=== PATIENT | male | born 1975 | race Caucasian/White ===

== ENCOUNTER 2022-05-04 09:42 | Outpatient (CLI) | payer OTHER, SELFPAY | END 2022-05-04 09:43 | disposition home or self-care (01) | LOC: NFLDREF 05-05 01:14 | PROVIDERS: PCP Physician Assistant Medical; Referring Provider Physician Assistant Medical; Visit Provider Physician Assistant Medical | DX: Z00.00 Encounter for general adult medical examination without abnormal findings (principal); N52.9 Male erectile dysfunction, unspecified; J45.909 Unspecified asthma, uncomplicated; J30.9 Allergic rhinitis, unspecified; R73.03 Prediabetes; J45.20 Mild intermittent asthma, uncomplicated; E78.5 Hyperlipidemia, unspecified; I10 Essential (primary) hypertension; E78.2 Mixed hyperlipidemia | CPT/HCPCS: 80053; 80061 ==

== ENCOUNTER 2022-05-30 07:50 | Outpatient (CLI) | payer OTHER, SELFPAY | END 2022-05-30 07:51 | disposition home or self-care (01) | LOC: OP CLINIC 07:52 | PROVIDERS: PCP Physician Assistant Medical; Visit Provider Surgery | DX: Z12.11 Encounter for screening for malignant neoplasm of colon (principal); K63.5 Polyp of colon | CPT/HCPCS: 45385; J2250; J3010 ==

== ENCOUNTER 2022-10-10 08:21 | Outpatient (CLI) | payer OTHER, SELFPAY ==
[2022-10-10 13:47] LABS: Hematocrit 47.3 % (37.0-53.0); Hemoglobin* 16.9 gm/dL (13.5-17.5); Mean Corpuscular HGB Conc 36 gm/dL (32-36); Mean Corpuscular Hemoglobin 30 pg (26-34); Mean Corpuscular Volume 83 fL (80-100); Platelet Count* 284 K/uL (140-440); Red Blood Count 5.69 m/uL (4.30-5.90)
[2022-10-10 13:57] LABS: Slide Review Reflex No
[2022-10-10 14:10] LABS: Total Protein Urine 6 mg/dL
[2022-10-10 14:17] LABS: Microalbumin Creatinine Ratio 10 mg/g (0-30); Microalbumin Urine 2 mg/dL
== END 2022-10-10 08:22 | disposition home or self-care (01) ==
PROVIDERS: PCP Physician Assistant Medical; Visit Provider Family Medicine
DX: Z00.00 Encounter for general adult medical examination without abnormal findings (principal); E11.9 Type 2 diabetes mellitus without complications; I10 Essential (primary) hypertension; E78.5 Hyperlipidemia, unspecified; R07.9 Chest pain, unspecified
CPT/HCPCS: 80053; 82043; 82570; 83880; 84156; 85027

== ENCOUNTER 2022-10-13 15:35 | Emergency (ER) | payer OTHER, SELFPAY ==
[2022-10-13] VITALS (22 sets, daily range): BP systolic 114–133; BP diastolic 76–96; PULSE 63–75; RESP 18; TEMP 36.3; O2SAT 94–98; BMI 34.7
--- NOTE | 2022-10-13 16:08 | ED_ITS ---
HPI - General Adult General Time Seen by Provider: 16:08 Date Seen: 10/13/22 Chief complaint: Arrhythmia/Palpitations Stated complaint: High blood sugar, irregular heartbeat Time Seen by Provider: 10/13/22 16:04 Source: patient, RN notes reviewed and old records reviewed Mode of arrival: ambulatory Limitations: no limitations History of Present Illness HPI narrative: 47-year-old male with diabetes, high blood pressure who presents with elevated blood sugars and palpitations. Review of prior records clinic records from October 09 and demonstrates that patient has a recent diagnosis of diabetes and was started on metformin and Ozempic 4 days ago, also was seen in clinic on October 10 for palpitations and chest pain and had EKG and labs at that time that were reassuring. Patient presents today concerned about high blood sugars. Patient's sugars do occasionally go in the 300s but generally have been higher than use meter will read. In addition to his metformin Ozempic he takes lisinopril-hydrochlorothiazide and atorvastatin. Complains of intermittent palpitations that will feel like fast beats that last for seconds, no associated chest pain or shortness of breath with this but does say he has felt fatigued. Denies nausea, vomiting, diarrhea, abdominal pain. Related Data Home Medications Medication Instructions Recorded Confirmed albuterol sulfate 2.5 mg/3 mL 2.5 mg inhalation Q4H PRN 10/10/21 10/10/22 (0.083 %) solution for nebulization dupilumab 100 mg/0.67 mL 150 mg subcut Q2W 10/10/21 10/10/22 subcutaneous syringe (Dupixent) ipratropium 0.5 mg-albuterol 3 mg 3 ml inhalation QID PRN 10/10/21 10/10/22 (2.5 mg base)/3 mL nebulization soln Previous Rx's Medication Instructions Recorded albuterol sulfate 90 mcg/actuation 2 puff inhalation Q4H PRN 05/04/22 aerosol inhaler (ProAir HFA) bronchospasm #8.5 grams atorvastatin 20 mg tablet See Rx Instructions .Route 05/04/22 .COMPLEX #90 tabs losartan 100 1 tab PO QDAY #90 tabs 05/04/22 mg-hydrochlorothiazide 12.5 mg tablet tadalafil 20 mg tablet (Cialis) 20 mg PO QDAY PRN sexual activity 05/04/22 #30 tabs blood-glucose meter,continuous #1 ea 10/09/22 (Dexcom G7 Motor Generator Set Operator) blood-glucose sensor (Dexcom G7 #1 ea 10/09/22 Sensor device) metformin 500 mg tablet,extended 500 mg PO QDAY #60 tabs 10/09/22 release 24 hr omeprazole 20 mg capsule,delayed 20 mg PO QDAY #30 caps 10/09/22 release semaglutide 0.25 mg or 0.5 mg (2 0.25 mg (0.368 mL) subcut QWEEK 4 10/09/22 mg/3 mL) subcutaneous pen injector weeks #1.472 mL (Ozempic) insulin detemir U-100 100 unit/mL 10 unit (0.1 mL) subcut QHS #15 mL 10/13/22 (3 mL) subcutaneous pen Allergies Allergy/AdvReac Type Severity Reaction Status Date / Time penicillin V Allergy Severe Hives Verified 10/10/22 07:56 HAYFEVER Allergy Unknown Unknown Uncoded 10/10/22 07:56 PFSH PFS Surgical History (Updated 01/18/22 @ 14:53 by Konstantin Thomson PA-C) History of esophageal stricture ?Z87.19 - Personal history of other diseases of the digestive system (ICD-10) History of medial meniscus repair of left knee ?Z98.890 - Other specified postprocedural states (ICD-10) History of endoscopic sinus surgery ?Z98.890 - Other specified postprocedural states (ICD-10) Family History (Updated 01/17/22 @ 10:57 by Kary Mayo ~ PSR) Maternal Grandmother Diabetes High blood pressure Mother High blood pressure Sister High blood pressure Social History (Updated 01/17/22 @ 10:58 by Kary Mayo ~ PSR) Narrative: Non smoker Does not use illicit drugs does not drink alcohol Smoking Status: Never smoker How often do you have a drink containing alcohol: monthly or less How often do you have six or more drinks on one occasion: Never AUDIT-C Alcohol total score: 1 Non-prescribed substance use: denies use Little interest or pleasure in doing things: several days Feeling down, depressed, or hopeless: several days Exam Narrative: Exam Narrative: General: Well-developed and well-nourished, no acute distress Head: Atraumatic and normocephalic Eyes: Pupils are equal reactive, extraocular motions intact, conjunctiva clear ENT: External nose and ears are normal, posterior pharynx without erythema or exudate Neck: No midline cervical tenderness, full spontaneous range of motion the neck, trachea midline, no adenopathy Heart: Regular rate and rhythm no murmurs or thrills Lungs: Clear to auscultation bilaterally without wheezes or crackles Abdomen: Soft, nontender, nondistended with active bowel sounds Musculoskeletal: No tenderness, deformity, or edema Neurologic: Awake, alert, and oriented x3, no gross focal neurologic deficits, cranial nerves intact as tested Psych: Mood and affect are appropriate Skin: No rashes Const: Vital Signs, click to edit/add: Vital Signs - 24 hr 10/13/22 15:47 10/13/22 16:13 10/13/22 16:15 Temperature 97.4 F L Pulse Rate 68 72 Pulse Rate [Right Pulse Oximeter] 75 Respiratory Rate 18 Blood Pressure Blood Pressure [Ri ght Upper Arm] 132/93 H Pulse Oximetry 98 95 94 Oxygen Delivery Me thod Room Air 10/13/22 16:30 10/13/22 16:31 10/13/22 16:45 Temperature Pulse Rate 69 71 70 Pulse Rate [Right Pulse Oximeter] Respiratory Rate Blood Pressure 128/90 H Blood Pressure [Ri ght Upper Arm] Pulse Oximetry 96 95 98 Oxygen Delivery Me thod 10/13/22 17:00 10/13/22 17:01 10/13/22 17:15 Temperature Pulse Rate 67 66 68 Pulse Rate [Right Pulse Oximeter] Respiratory Rate Blood Pressure 133/96 H Blood Pressure [Ri ght Upper Arm] Pulse Oximetry 97 96 96 Oxygen Delivery Me thod 10/13/22 17:30 10/13/22 17:31 10/13/22 17:32 Temperature Pulse Rate 67 67 68 Pulse Rate [Right Pulse Oximeter] Respiratory Rate Blood Pressure 128/93 H Blood Pressure [Ri ght Upper Arm] Pulse Oximetry 96 98 97 Oxygen Delivery Me thod 10/13/22 17:45 10/13/22 18:00 10/13/22 18:01 Temperature Pulse Rate 66 66 64 Pulse Rate [Right Pulse Oximeter] Respiratory Rate Blood Pressure 114/76 Blood Pressure [Ri ght Upper Arm] Pulse Oximetry 97 98 97 Oxygen Delivery Me thod 10/13/22 18:19 10/13/22 18:30 Temperature Pulse Rate 63 65 Pulse Rate [Right Pulse Oximeter] Respiratory Rate Blood Pressure Blood Pressure [Ri ght Upper Arm] Pulse Oximetry 97 98 Oxygen Delivery Fl thod Course Course Hospital Course: Patient seen and examined, prior records are reviewed (see HPI). Patient seen today with palpitations, no associated chest pain, does feel some shortness of breath fatigue but this likely is due to his ongoing hyperglycemia and not cardiac disease. He labs ordered to evaluate for electrolyte abnormalities, IV fluids are initiated, will evaluate for DKA as well. Reevaluation(s) Time of Reevaluation #1: 18:48 Reevaluation #1: Labs independently interpreted by me with reassuring CBC, no anemia or leukocytosis. Hyperglycemia with pseudo hyponatremia, reassuring creatinine, normal potassium, no metabolic acidosis to suggest DKA. Urinalysis with glucose and ketones but no evidence for infection. Long conversation with patient and spouse regarding plan, we discussed continued dietary interventions and activity modification with or without starting long-acting insulin short-term. They would like to start insulin today. We discussed that with weight loss and dietary interventions, as well as Ozempic and metformin, patient may not need to be on long-term insulin therapy but these medications can take several weeks to reach steady state for blood sugar control. Patient was started on Lantus 10 units at bedtime and close follow-up with primary care. He has a continues glucose monitor and so can watch for hypoglycemia although given high glucose levels, at this low level of Lantus hypoglycemia would be unlikely. Vital Signs Vital signs: Initial Vital Signs Temperature 97.4 F L 10/13/22 15:47 Temperature Source Temporal Artery Scan 10/13/22 15:47 Pulse Rate 75 10/13/22 15:47 Respiratory Rate 18 10/13/22 15:47 Blood Pressure 132/93 H 10/13/22 15:47 Blood Pressure Mean 106 H 10/13/22 15:47 Blood Pressure Position Sitting 10/13/22 15:47 Pulse Oximetry 98 10/13/22 15:47 Oxygen Delivery Method Room Air 10/13/22 15:47 Vital Signs Temperature 97.4 F L 10/13/22 15:47 Pulse Rate 75 10/13/22 15:47 Respiratory Rate 18 10/13/22 15:47 Blood Pressure 132/93 H 10/13/22 15:47 Pulse Oximetry 98 10/13/22 15:47 Oxygen Delivery Method Room Air 10/13/22 15:47 Temperature 97.4 F L 10/13/22 15:47 Pulse Rate 65 10/13/22 18:30 Respiratory Rate 18 10/13/22 15:47 Blood Pressure 114/76 10/13/22 18:01 Pulse Oximetry 98 10/13/22 18:30 Oxygen Delivery Method Room Air 10/13/22 15:47 Medical Decision Making Lab Data Labs: Lab Results 10/13/22 10/13/22 10/13/22 Range/Units 16:11 16:50 Unknown VBG pH 7.372 (7.32-7.43) VBG pCO2 46 (40-50) mmHG VBG pO2 38.7 (25-47) mmHG VBG HCO3 27 (21-28) mmol/L Sodium 129 L (135-149) mmol/L Potassium 4.4 (3.6-5.1) mmol/L Chloride 95 L (96-114) mmol/L Carbon Dioxide 27 (20-32) mmol/L Anion Gap 7 (7-15) mEq/L BUN 14 (5-24) mg/dL Creatinine 0.8 (0.5-1.5) mg/dL Estimated Creat Clear 112.92 Estimated GFR 109 ml/min Glucose 452 H* (60-115) mg/dL Calcium 9.0 (8.4-10.6) mg/dL Magnesium 1.5 (1.5-2.6) mg/dL Total Bilirubin 0.9 (0.1-1.5) mg/dL Direct Bilirubin 0.1 (0.0-0.5) mg/dL AST 46 H (12-35) U/L ALT 101 H (4-50) U/L Alkaline Phosphatase 84 (40-150) U/L Troponin I < 0.01 L (0.01-0.04) ng/mL NT-Pro-B Natriuret Pep < 20 pg/mL Total Protein 6.7 (6.0-8.3) g/dL Albumin 4.2 (3.3-5.0) g/dL TSH 2.580 (0.270-4.200) uIU/mL Urine Color Yellow (Yellow) Urine Appearance Clear (Clear) Urine pH 5.5 (5.0-8.5) Ur Specific [place] 1.015 (1.000-1.030) Urine Protein Negative (Negative) Urine Glucose (UA) 2+ A (Negative) Urine Ketones 1+ A (Negative) Urine Blood Negative (Negative) Urine Nitrite Negative (Negative) Urine Bilirubin Negative (Negative) Urine Urobilinogen 0.2 (0.2-1.0) Ur Leukocyte Esterase Negative (Negative) Urine RBC 0-2 (0-2) Urine WBC 0-2 (0-5) Ur Squamous Epith Cells None (None-Few) Urine Bacteria None (None) POC Glucose 486 H* (60-115) mg/dl ECG Data Attestation: I personally reviewed and interpreted this ECG as follows: Prior ECG tracings: available for review Interpretation: Performed at 3:56 p.m. independently interpreted by me demonstrates normal sinus rhythm rate 70, no acute ST elevations or depressions, normal intervals, normal axis, QTC 403, NV 206. Compared to prior of October 10, no acute changes. Discharge Plan Discharge Clinical Impression: Diabetes mellitus with hyperglycemia, without long-term current use of insulin Patient Disposition: Home, Self-Care Condition: Stable Instructions: Type 2 Diabetes in Adults: New Diagnosis (DC), How to Give an Insulin Injection (ED), Meal Planning with the Plate Method (DC), Meal Planning with Diabetes Exchanges (DC), Diabetic Hyperglycemia (ED) Additional Instructions: Follow-up with your primary care doctor in 1 week Activity Level: Activity as Tolerated Discharge Diet: Diabetic Prescriptions: New insulin detemir U-100 100 unit/mL (3 mL) insulin pen 10 unit subcut QHS Qty: 15 0RF No Action tadalafil [Cialis] 20 mg tablet 20 mg PO QDAY PRN (Reason: sexual activity) Qty: 30 1RF Rx Instructions: take 1 tablet 30 min to 36 hours prior to intercourse albuterol sulfate [ProAir HFA] 90 mcg/actuation HFA aerosol inhaler 2 puff inhalation Q4H PRN (Reason: bronchospasm) Qty: 8.5 3RF (DME) Dexcom G7 Motor Generator Set Operator Misc See Rx Instructions .ROUTE .MEDSUPPLY Qty: 1 0RF Rx Instructions: As directed (DME) Dexcom G7 Sensor Device See Rx Instructions .ROUTE .MEDSUPPLY Qty: 1 0RF Rx Instructions: As directed metformin 500 mg tablet extended release 24 hr 500 mg PO QDAY Qty: 60 0RF Rx Instructions: Take 1 tab daily x 1wk. Increase to 1 tab twice daily after the first week, if tolerating medication. Ozempic 0.25 mg or 0.5 mg (2 mg/3 mL) pen injector 0.25 mg subcut QWEEK 28 Days Qty: 1.472 0RF omeprazole 20 mg capsule,delayed release(DR/EC) 20 mg PO QDAY Qty: 30 1RF Dupixent Syringe 100 mg/0.67 mL syringe 150 mg subcut Q2W ipratropium-albuterol 0.5 mg-3 mg(2.5 mg base)/3 mL solution for nebulization 3 ml inhalation QID PRN albuterol sulfate 2.5 mg /3 mL (0.083 %) solution for nebulization 2.5 mg inhalation Q4H PRN atorvastatin 20 mg tablet See Rx Instructions .ROUTE .COMPLEX Qty: 90 3RF Dose Instruction: TAKE 1 TABLET BY MOUTH EVERY EVENING. Rx Instructions: TAKE 1 TABLET BY MOUTH EVERY EVENING. losartan-hydrochlorothiazide 100-12.5 mg tablet 1 tab PO QDAY Qty: 90 3RF Follow Up/Referrals: Konstantin Thomson PA-C [Primary Care Provider] - Stand Alone Forms: [employer] Info Instructions
[2022-10-13 16:12] LABS: Glucose, Point-of-Care* 486 mg/dl (60-115)
[2022-10-13] MEDS: 0.9 % SODIUM CHLORIDE 1000 ml 1,000 ML IV ×2 (17:00→18:20)
[2022-10-13 17:04] LABS: HCO3 VBG 27 mmol/L (21-28); PCO2 VBG 46 mmHG (40-50); PO2 VBG 38.7 mmHG (25-47); pH VBG 7.372 (7.32-7.43)
[2022-10-13 17:25] LABS: Albumin* 4.2 g/dL (3.3-5.0); Chloride* 95 mmol/L (96-114); Potassium* 4.4 mmol/L (3.6-5.1); Sodium* 129 mmol/L (135-149)
[2022-10-13 17:27] LABS: Creatinine* 0.8 mg/dL (0.5-1.5); Est. Creatinine Clearance* 112.92; Estimated Glomerular Filt Rate 109 ml/min
[2022-10-13 17:28] LABS: Alanine Aminotransferase* 101 U/L (4-50); Alkaline Phosphatase* 84 U/L (40-150); Anion Gap 7 mEq/L (7-15); Aspartate Amino Transferase* 46 U/L (12-35); Bilirubin Direct* 0.1 mg/dL (0.0-0.5); Bilirubin Total* 0.9 mg/dL (0.1-1.5); Blood Urea Nitrogen* 14 mg/dL (5-24); Carbon Dioxide* 27 mmol/L (20-32); Total Protein* 6.7 g/dL (6.0-8.3)
[2022-10-13 17:29] LABS: Magnesium* 1.5 mg/dL (1.5-2.6)
[2022-10-13 17:39] LABS: Glucose* 452 mg/dL (60-115); NT Pro B Type NatriureticPept* < 20 pg/mL; Troponin I* < 0.01 ng/mL (0.01-0.04)
[2022-10-13 18:18] LABS: Appearance Urine Clear (Clear); Bilirubin Urine Negative (Negative); Blood Urine Negative (Negative); Color Urine Yellow (Yellow); Glucose Urine 2+ (Negative); Ketones Urine 1+ (Negative); Leukocyte Esterase Urine Negative (Negative); Nitrite Urine Negative (Negative); Protein Urine Negative (Negative); Specific Gravity Urine 1.015 (1.000-1.030); Urobilinogen Urine 0.2 (0.2-1.0); pH Urine 5.5 (5.0-8.5)
[2022-10-13 18:28] LABS: RBC Urine 0-2 (0-2); WBC Urine 0-2 (0-5)
--- NOTE | 2022-10-16 18:53 | ED.NURSE ---
Pt called and states no rx was sent for needles for new insulin pen. Verbal rx given over phone to [facility] pharmacist for needles for Lantus insulin pen, no refills.
== END 2022-10-13 19:56 | disposition home or self-care (01) ==
PROVIDERS: Emergency Provider Family Medicine; PCP Physician Assistant Medical
DX: E11.65 Type 2 diabetes mellitus with hyperglycemia (principal)
CPT/HCPCS: 36415; 80048; 80076; 81001; 82803; 82947; 83735; 83880; 84443; 84484; 93005; 99284; 99285; J7030

== ENCOUNTER 2023-09-26 08:40 | Outpatient (CLI) | payer OTHER, SELFPAY | END 2023-09-26 08:41 | disposition home or self-care (01) | LOC: NFLDREF 09-30 07:05 | PROVIDERS: PCP Physician Assistant Medical; Referring Provider Physician Assistant Medical; Visit Provider Physician Assistant Medical | DX: E11.9 Type 2 diabetes mellitus without complications (principal); I10 Essential (primary) hypertension; E78.2 Mixed hyperlipidemia; J45.20 Mild intermittent asthma, uncomplicated; K21.00 Gastro-esophageal reflux disease with esophagitis, without bleeding | CPT/HCPCS: 80053; 80061; 82043; 82570 ==

== ENCOUNTER 2024-05-20 12:47 | Emergency (ER) | payer OTHER, SELFPAY ==
--- OUTSIDE RECORDS SUMMARY | 2024-05-20 12:50 | XMS_ITS | Referral Summary ---
Author Organization [facility] Address [address] [place] [id number] Care Team Providers Care Certified Registered Nurse Anesthetist Name Role Phone None, Md Primary Care Provider Unavailabl e Allergies Active Allergy Reactions Criticality Noted Date Comments Penicillins Hives High 12/10/2017 Medications amLODIPine (NORVASC) 5 mg oral tablet Take 5 mg by mouth once daily. Active cetirizine (ZYRTEC) 10 mg oral tablet Take 10 mg by mouth once daily. Active albuterol HFA (PROVENTIL;VENT ADELAIDA HFA) 90 mcg/actuation Inhl inhaler Inhale 1 puff every 4 (four) hours as needed. Active HYDROcodone-cindy taminophen (NORCO) 5-325 mg oral tablet Take 1-2 tablets by mouth every 4 (four) hours as needed for Pain. 30 tablet 12/11/2017 6:08 PM CDT 12/11/2017 Active Sodium Chloride 0.9 % Nasal [place] SprA Instill 3 puffs into each nostril three times a day. 1 Canister 3 12/11/2017 Active Active Problems Problem Noted Date Diagnosed Date Chronic pansinusitis 12/11/2017 Social History Tobacco Use Types Packs/Day Years Used Date Smoking Tobacco: Never Smokeless Tobacco: Never Alcohol Use Standard Drinks/Week Comments No 0 (1 standard drink = 0.6 oz pur e alcohol) Sex and Gender Information Value Date Recorded Sex Assigned at Not on file Legal Sex Male 11:35 AM CDT Gender Identity Not on file Sexual Orientation Not on file Last Filed Vital Signs Vital Sign Reading Time Taken Comments Blood Pressure 106/74 12/11/2017 7:35 PM CDT Pulse 65 12/11/2017 7:35 PM CDT Temperature 36.2 C (97.1 F) 12/11/2017 7:35 PM CDT Respiratory Rate 16 12/11/2017 7:35 PM CDT Oxygen Saturation 92% 12/11/2017 7:35 PM CDT Inhaled Oxygen Concentration - - Weight 102.5 kg (226 lb) 12/10/2017 3:46 PM CDT Height 175.3 cm (5' 9) 12/10/2017 3:46 PM CDT Body Mass Index 33.37 12/10/2017 3:46 PM CDT Plan of Treatment Not on file Medical Devices Implanted Type Area [employer] Members[employer] Device Identifier Shelf Expiration Date Model / Serial / Lot Implant Sinus Propel Mini - [id number] Implanted:Qty: 4 on 12/11/2017 by Ray Pickard [place] at [facility] [place] Supply N/A: [employer] 03/13/2019 [id number] / / [id number] Implant Sinus Propel - [id number] Implanted:Qty: 2 on 12/11/2017 by Ray Pickard MD at [facility] [place] Supply N/A: [employer] 05/09/2019 [id number] / / [id number] Care Teams Certified Registered Nurse Anesthetist Relationship Specialty Start Date End Date Md Stefano PCP - General 12/11/17
--- OUTSIDE RECORDS SUMMARY | 2024-05-20 12:50 | XMS_ITS | Clinical Summary ---
Author Organization [facility] Address [address] [place] [id number] Care Team Providers Care Buckle Strap Drum Operator Name Role Phone [facility] Primary Care Provider Allergies Active Allergy Reactions Criticality Noted Date Comments Penicillin G Rash Low 11/18/2012 Medications Cetirizine HCl (ZYRTEC PO) Active ALBUTEROL Active Active Problems Problem Noted Date Diagnosed Date Sprain of ankle 11/18/2012 Overview (11/20/2014): Problem list name updated by automated process. Provider to review Family History Medical History Relation Comments Asthma Maternal Grandfather Heart Disease Maternal Grandfather Allergies Maternal Grandmother Diabetes Maternal Grandmother Allergies Mother Asthma Mother Arthritis Paternal Grandmother Relation Status Comments Maternal Grandfather Maternal Grandmother Mother Paternal Grandmother Social History Tobacco Use Types Packs/Day Years Used Date Smoking Tobacco: Never Smokeless Tobacco: Never Alcohol Use Standard Drinks/Week Comments Yes 0 (1 standard drink = 0.6 oz pur e alcohol) occasional PHQ-2 Answer Date Recorded PHQ-2 Score 0 03/06/2018 Adolescent Education Answer Date Record ed Getting School Help Needed Not on file 12/02 Sex and Gender Information Value Date Recorded Sex Assigned at Not on file Legal Sex Male 4:30 AM SUTURE POLISHER Gender Identity Not on file Sexual Orientation Not on file Last Filed Vital Signs Vital Sign Reading Time Taken Comments Blood Pressure 126/88 04/01/2018 1:18 PM SUTURE POLISHER Pulse 69 04/01/2018 1:18 PM SUTURE POLISHER Temperature 36.3 C (97.3 F) 04/01/2018 1:18 PM SUTURE POLISHER Respiratory Rate 22 07/14/2015 12:55 PM CDT Oxygen Saturation 97% 04/01/2018 1:18 PM SUTURE POLISHER Inhaled Oxygen Concentration - - Weight 105.2 kg (232 lb) 04/01/2018 1:18 PM SUTURE POLISHER Height 176.5 cm (5' 9.5) 04/01/2018 1:18 PM SUTURE POLISHER Body Mass Index 33.77 04/01/2018 1:18 PM SUTURE POLISHER Plan of Treatment Not on file Care Teams Buckle Strap Drum Operator Relationship Specialty Start Date End Date [address] [address] PCP - General 12/13/16
--- OUTSIDE RECORDS SUMMARY | 2024-05-20 12:50 | XMS_ITS | Clinical Summary ---
Author Organization [facility] Address [address] [place] [id number] Care Team Providers Care Construction Teacher Name Role Phone None, Primary Care Provider Unavailabl e Allergies Active [...] 12/11/2017 Active Sodium Chloride 0.9 % Nasal [place] SprA Instill 3 puffs into each nostril three times a day. 1 Canister 3 12/11/2017 Active Active Problems Problem Noted Date Diagnosed Date Chronic pansinusitis 12/11/2017 Family History Medical History Relation Comments Diabetes Maternal Grandmother Relation Status Comments Maternal Grandmother Social History Tobacco Use Types Packs/Day [...] 12/10/2017 3:46 PM CDT Plan of Treatment Health Maintenance Due Date Last Done Comments Colonoscopy 1974 Hepatitis C Screening 1974 Lipid Screening 1974 Anxiety Screening (JUANPABLO-2) 1975 Depression Assessment (PHQ-2) 1975 Pneumococcal 50+ Years (1 of 2 - PCV) 1993 Pneumococcal Vaccine (1 of 2 - PCV) 1993 COVID-19 Vaccine (1 - season) 2023 Influenza Vaccine (#1) 2023 Yearly Review of HCD 2024 12/05/2017 Zoster Vaccine (1 of 2) 2024 Adult Tetanus Booster 12/02/2026 12/02/2016 RSV Vaccines (1 - 1-dose 75+ series) 2049 Medical Devices Implanted Type Area Software Product Specialist Device Identifier Shelf Expiration Date Model / Serial / Lot Implant Sinus Propel Mini - [id number] Implanted:Qty: 4 on 12/11/2017 by Ray Pickard MD at [facility] [place] Supply N/A: [employer] 03/13/2019 [id number] / / [id number] Implant Sinus Propel - [id number] Implanted:Qty: 2 on 12/11/2017 by Ray Pickard MD at [facility] [place] [facility] Supply N/A: [employer] 05/09/2019 [id number] / / [id number] Care Teams Construction Teacher Relationship Specialty Start Date End Date Stefano, PCP - General 12/11/17
[2024-05-20 13:28] VITALS: BP 134/94; PULSE 95; RESP 16; TEMP 36.5; O2SAT 95; BMI 34.4
--- NOTE | 2024-05-20 15:11 | CRLHL7_ITS ---
For Patients: As a result of the Century Cures Act, medical imaging exams and procedure reports are released immediately into your electronic medical record. You may view this report before your referring provider. If you have questions, please contact your health care provider. Indication: DIARRHEA. RECENT TRIP TO [place] Technique: CT abdomen and pelvis after the intravenous administration of 118 cc of Isovue 370 Comparison: None. Findings: Benign calcified granuloma is present left upper lobe there is mild atelectasis at the lung bases. Subcentimeter hypodensity within the liver dome is too small to characterize, statistically a cyst. The spleen is enlarged measuring 16 centimeters in length. The gallbladder, pancreas, adrenal glands, and kidneys are normal. Urinary bladder is minimally filled and inadequately evaluated. There are no pelvic cysts or masses. The appendix is not visualized, correlate for surgical absence. The hollow viscera is without obstruction, focal bowel wall thickening or adjacent inflammatory stranding. There is no free air, ascites or lymphadenopathy. The abdominal aorta and its major branches are patent and normal in caliber. Soft tissues are unremarkable. Right total hip arthroplasty is present. 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 IMPRESSION: 1. Splenomegaly. Correlate with patient history and appropriate labs. 2. No acute intra-abdominal findings. Please note that all CT scans at this facility use dose modulation, iterative reconstruction, and/or weight-based dosing when appropriate to reduce radiation dose to as low as reasonably achievable. Dictated by Rony Torres MD @ 05/20/2024 4:03:27 PM (Electronically Signed)
[2024-05-20 15:17] LABS: Creatinine, Point-of-Care* 1.2 mg/dl (0.6-1.3)
[2024-05-20] MEDS: LACTATED RINGERS 1000 ML 1,000 ML IV (15:21)
[2024-05-20 15:24] LABS: Basophils Percent Auto 0.3 % (0.0-3.0); Eosinophils Percent Auto 3.4 % (0.0-7.0); Hematocrit 49.4 % (37.0-53.0); Hemoglobin* 17.3 gm/dL (13.5-17.5); Lymphocytes Percent Auto 13.4 % (20-44); Mean Corpuscular HGB Conc 35 gm/dL (32-36); Mean Corpuscular Hemoglobin 29 pg (26-34); Mean Corpuscular Volume 83 fL (80-100); Monocytes Percent Auto 5.6 % (0.0-11.0); Neutrophils Percent Auto 75.3 % (42.0-72.0); Platelet Count* 285 K/uL (140-440); RDW Coefficient of Variation % 13.1 % (11.5-15.5); Red Blood Count 5.97 m/uL (4.30-5.90); White Blood Count* 11.32 K/uL (4.50-11.00)
--- OUTSIDE RECORDS SUMMARY | 2024-05-20 15:24 | XMS_ITS | Referral Summary ---
Author Organization [facility] Address [address] [place] [id number] Care Team Providers Care Research Worker Kitchen Name Role Phone None, Md Primary Care [...] 12/11/2017 Active Sodium Chloride 0.9 % Nasal [place] SprA Instill 3 puffs into each nostril [...] on file Medical Devices Implanted Type Area Electronic Organ Technician Device Identifier Shelf Expiration Date Model / Serial / Lot Implant Sinus Propel Mini - [id number] Implanted:Qty: 4 on 12/11/2017 by Ray Pickard MD [place] [facility] [place] Supply N/A: [employer] 03/13/2019 [id number] / / [id number] Implant Sinus Propel - [id number] Implanted:Qty: 2 on 12/11/2017 by Ray Pickard MD [place] [facility] [place] Supply N/A: [employer] 05/09/2019 [id number] / / [id number] Care Teams Research Worker Kitchen Relationship Specialty Start Date End Date Md Stefano PCP - General 12/11/17
--- OUTSIDE RECORDS SUMMARY | 2024-05-20 15:24 | XMS_ITS | Clinical Summary ---
Author Organization [facility] Address [address] [place] [id number] Care Team Providers Care Iso Coordinator Name Role Phone None, Primary Care Provider [...] 12/11/2017 Active Sodium Chloride 0.9 % Nasal [place] SprA Instill 3 puffs into each nostril [...] series) 2049 Medical Devices Implanted Type Area [employer] Worker Device Identifier Shelf Expiration Date Model / Serial / Lot Implant Sinus Propel Mini - [id number] Implanted:Qty: 4 on 12/11/2017 by Ray Pickard MD at [facility] [place] [facility] Supply N/A: [employer] 03/13/2019 [id number] / / [id number] Implant Sinus Propel - [id number] Implanted:Qty: 2 on 12/11/2017 by Ray Pickard MD at [facility] [place] [facility] Supply N/A: [employer] 05/09/2019 [id number] / / [id number] Care Teams Iso Coordinator Relationship Specialty Start Date End Date Stefano, PCP - General 12/11/17
--- OUTSIDE RECORDS SUMMARY | 2024-05-20 15:24 | XMS_ITS | Clinical Summary ---
Author Organization [facility] Address [address] [place] [id number] Care Team Providers Care Insurance Professional Name Role Phone [facility], [facility] Primary Care Provider Allergies Active Allergy Reactions [...] on file Legal Sex Male 4:30 AM ROLL UP MACHINE OPERATOR Gender Identity Not on file Sexual Orientation Not on file Last Filed Vital Signs Vital Sign Reading Time Taken Comments Blood Pressure 126/88 04/01/2018 1:18 PM ROLL UP MACHINE OPERATOR Pulse 69 04/01/2018 1:18 PM ROLL UP MACHINE OPERATOR Temperature 36.3 C (97.3 F) 04/01/2018 1:18 PM ROLL UP MACHINE OPERATOR Respiratory Rate 22 07/14/2015 12:55 PM CDT Oxygen Saturation 97% 04/01/2018 1:18 PM ROLL UP MACHINE OPERATOR Inhaled Oxygen Concentration - - Weight 105.2 kg (232 lb) 04/01/2018 1:18 PM ROLL UP MACHINE OPERATOR Height 176.5 cm (5' 9.5) 04/01/2018 1:18 PM ROLL UP MACHINE OPERATOR Body Mass Index 33.77 04/01/2018 1:18 PM ROLL UP MACHINE OPERATOR Plan of Treatment Not on file Care Teams Insurance Professional Relationship Specialty Start Date End Date [address] [address] PCP - General 12/13/16
--- NOTE | 2024-05-20 15:34 | ED.NAVMDI ---
HPI - Nausea/Vomiting/Diarrhea General Date Seen: 05/20/24 Chief complaint: Diarrhea Stated complaint: diarrhea-recent trip to [place] Time Seen by Provider: 05/20/24 14:33 Source: patient Mode of arrival: ambulatory Limitations: no limitations History of Present Illness HPI Narrative: Patient is a 49-year-old male presenting to the emergency department for 4 days of diarrhea. He states he was in [place] on vacation came back Sunday. Has been having the diarrhea consistently he states it also has been having intermittent nausea. Last vomited yesterday. Took Pepto-Bismol Sunday is having black stools Sunday into this morning but the stools he states are yellow. They are watery. Is unaware of any other sick contacts. No on else he went on vacation with her sick. Has not had any fevers or chills. Is having some mild epigastric discomfort. Pain does not seem to radiate anywhere. Denies chest pain, shortness of breath, lightheadedness, dizziness, weakness, numbness, dysuria polyuria. No previous abdominal surgeries. Has been having decrease in oral intake due to his decreased appetite. Has been trying to drink fluids. No other concerns noted. Related Data Home Medications ?Medication ?Instructions ?Recorded ?Confirmed albuterol sulfate 2.5 mg/3 mL 2.5 mg inhalation Q4H PRN 10/10/21 09/26/23 (0.083 %) solution for nebulization dupilumab 100 mg/0.67 mL 150 mg subcut Q2W 10/10/21 09/26/23 subcutaneous syringe (Dupixent) ipratropium 0.5 mg-albuterol 3 mg 3 ml inhalation QID PRN 10/10/21 09/26/23 (2.5 mg base)/3 mL nebulization soln Previous Rx's ?Medication ?Instructions ?Recorded albuterol sulfate 90 mcg/actuation 2 puff inhalation Q4H PRN 05/04/22 aerosol inhaler (ProAir HFA) bronchospasm #8.5 grams blood-glucose meter,continuous #1 ea 10/09/22 (Rotapanelcom G7 Emergency Management Consultant) tadalafil 20 mg tablet (Cialis) 20 mg PO QDAY PRN sexual activity 06/06/23 #30 tabs atorvastatin 20 mg tablet 20 mg PO QHS #90 tabs 09/26/23 losartan 100 1 tab PO QDAY #90 tabs 09/26/23 mg-hydrochlorothiazide 12.5 mg tablet omeprazole 20 mg capsule,delayed 20 mg PO DAILY #90 caps 09/26/23 release semaglutide 2 mg/dose (8 mg/3 mL) 2 mg (0.75 mL) subcut QWEEK 3 09/26/23 subcutaneous pen injector (Ozempic) months #9.75 mL tirzepatide 10 mg/0.5 mL 10 mg (0.5 mL) subcut QWEEK #2 mL 03/17/24 subcutaneous pen injector (Mounjaro) blood-glucose sensor (Dexcom G7 #3 ea 05/13/24 Sensor device) Allergies Allergy/AdvReac Type Severity Reaction Status Date / Time penicillin V Allergy Severe Hives Verified 05/20/24 15:45 HAYFEVER Allergy Unknown Unknown Uncoded 05/20/24 15:45 Review of Systems Status of ROS: Reports: 10 or more systems reviewed and unremarkable except as noted in History and below PFSH PFSH Medical History Chest pain ?R07.9 - Chest pain, unspecified (ICD-10) Surgical History History of esophageal stricture ?Z87.19 - Personal history of other diseases of the digestive system (ICD-10) History of medial meniscus repair of left knee ?Z98.890 - Other specified postprocedural states (ICD-10) History of endoscopic sinus surgery ?Z98.890 - Other specified postprocedural states (ICD-10) Family History Maternal Grandmother Diabetes High blood pressure Mother High blood pressure Sister High blood pressure Social History Narrative: Non smoker Does not use illicit drugs does not drink alcohol Smoking Status: Never smoker How often do you have a drink containing alcohol: monthly or less How often do you have six or more drinks on one occasion: Never AUDIT-C Alcohol total score: 1 Non-prescribed substance use: denies use Exam Narrative: Exam Narrative: Const: Well-nourished, Well-developed, in mild distress Eyes: PERRL, no conjunctival injection, and symmetrical lids HENT: Atraumatic external nose and ears. Moist mucous membranes. Neck: Symmetric, trachea midline, No thyromegaly. CVS: RRR, No murmurs or gallops. Peripheral pulses 2+ and equal in all extremities RESP: Unlabored respiratory effort. Clear to auscultation bilaterally. GI: Epigastric tenderness, Nondistended, No rebound or guarding. MSK:Extremities w/o deformity, Normal Active ROM Skin: Warm, Dry. No rashes or lesions. Neuro: Normal Muscle tone, No focal neurological deficits. Psych: Awake, Alert, & Oriented x3. Appropriate mood and affect. Const: Vital Signs, click to edit/add: Vital Signs - 24 hr 05/20/24 13:28 Temperature 97.7 F Pulse Rate [Pulse Oximeter] 95 Respiratory Rate 16 Blood Pressure [Ri ght Upper Arm] 134/94 H Pulse Oximetry 95 Oxygen Delivery Me thod Room Air Course Vital Signs Vital signs: Initial Vital Signs Temperature 97.7 F 05/20/24 13:28 Temperature Source Temporal Artery Scan 05/20/24 13:28 Pulse Rate 95 05/20/24 13:28 Respiratory Rate 16 05/20/24 13:28 Blood Pressure 134/94 H 05/20/24 13:28 Blood Pressure Mean 107 H 05/20/24 13:28 Pulse Oximetry 95 05/20/24 13:28 Oxygen Delivery Method Room Air 05/20/24 13:28 Vital Signs Temperature 97.7 F 05/20/24 13:28 Pulse Rate 95 05/20/24 13:28 Respiratory Rate 16 05/20/24 13:28 Blood Pressure 134/94 H 05/20/24 13:28 Pulse Oximetry 95 05/20/24 13:28 Oxygen Delivery Method Room Air 05/20/24 13:28 Temperature 97.7 F 05/20/24 13:28 Pulse Rate 95 05/20/24 13:28 Respiratory Rate 16 05/20/24 13:28 Blood Pressure 134/94 H 05/20/24 13:28 Pulse Oximetry 95 05/20/24 13:28 Oxygen Delivery Method Room Air 05/20/24 13:28 Medications Administered Medications: Discontinued Medications Generic Name Dose Route Start Last Admin Trade Name Freq PRN Reason Stop Dose Admin Lactated Ringer's 1,000 mls @ 1,000 mls/hr 05/20/24 14:46 05/20/24 16:02 Lactated Ringers 1000 Ml IV 05/20/24 15:45 Infused .Q1H ONE Infusion MDM - Nausea/Vomiting/Diarrhea MDM Narrative Medical decision making narrative: Patient is a 49-year-old male presenting to the emergency department for diarrhea. Is no longer vomiting. States his symptoms feel in control right now she is concerned because he continues to have diarrhea. Differential the same with his gastroenteritis, pancreatitis, gallbladder liver disease. Due to location of pain appendicitis and diverticulitis seems less likely. He is otherwise stable and ruptured AAA seems very unlikely. I believe his black stools from yesterday is likely from the Pepto-Bismol he was using. He stop Pepto-Bismol the black stools resolved. Unlikely to be an upper GI bleed at this time. Will order a CBC, CMP, lipase, COVID/flu/RSV. Will do CT scan of the abdomen pelvis for better evaluation and give him a L of fluids. Patient's lab work shows no concerning abnormalities other than he is COVID positive. This is likely the source of all of his symptoms. CT scan reviewed by myself and the radiologist shows no acute concerning abnormalities. He does have some mild splenomegaly. This may be from the COVID. I recommended to him the stays away from contact sports until this resolves. He is safe for discharge and he is agreeable to this plan. Lab Data Labs: Lab Results 05/20/24 Range/Units 15:10 WBC 11.32 H (4.50-11.00) K/uL RBC 5.97 H (4.30-5.90) m/uL Hgb 17.3 (13.5-17.5) gm/dL Hct 49.4 (37.0-53.0) % MCV 83 (80-100) fL MCH 29 (26-34) pg MCHC 35 (32-36) gm/dL RDW Coeff of Darlyn 13.1 (11.5-15.5) % Plt Count 285 (140-440) K/uL Neut % (Auto) 75.3 H (42.0-72.0) % Lymph % (Auto) 13.4 L (20-44) % Davie % (Auto) 5.6 (0.0-11.0) % Eos % (Auto) 3.4 (0.0-7.0) % Baso % (Auto) 0.3 (0.0-3.0) % Neut # (Auto) 8.50 H (1.7-7.0) K/uL Lymph # (Auto) 1.50 (0.90-2.90) K/uL [place]ie # (Auto) 0.60 (0.00-0.90) K/UL Eos # (Auto) 0.40 (0.00-0.50) K/uL Baso # (Auto) 0.00 (0.00-0.30) K/uL Abs Immat Gran (auto) 0.20 (0.00-0.30) K/uL Imm/Tot Granulo (auto) 2.0 % Sodium 138 (135-149) mmol/L Potassium 3.7 (3.6-5.1) mmol/L Chloride 108 (96-114) mmol/L Carbon Dioxide 16 L (20-32) mmol/L Anion Gap 14 (7-15) mEq/L BUN 16 (7-30) mg/dL Creatinine 1.1 (0.5-1.5) mg/dL Estimated Creat Clear 82.95 Estimated GFR 82 ml/min Glucose 109 (60-115) mg/dL Calcium 9.6 (8.4-10.6) mg/dL Lipase 43 (23-300) U/L SARS-CoV-2 (PCR) POSITIVE SARS-CoV-2 A (Negative) Influenza Type A (PCR) Negative PCR FLU A (Negative) Influenza Type B (PCR) Negative PCR FLU B (Negative) RSV (PCR) Negative PCR RSV (Negative) POC Creatinine 1.2 (0.6-1.3) mg/dl Imaging Data CT scan abdomen and pelvis: Attestation: I have reviewed the pertinent imaging results. Radiologist's impression: 1. Splenomegaly. Correlate with patient history and appropriate labs. 2. No acute intra-abdominal findings. Please note that all CT scans at this facility use dose modulation, iterative reconstruction, and/or weight-based dosing when appropriate to reduce radiation dose to as low as reasonably achievable. Dictated by Rony Torres MD @ 05/20/2024 4:03:27 PM Discharge Plan Discharge Clinical Impression: COVID Patient Disposition: Home, Self-Care Condition: Stable Instructions: COVID-19 (Coronavirus Disease 2019) (ED) Additional Instructions: Make sure to stay well hydrated. He do have some splenomegaly. This is likely from the COVID. Should resolve but recommend abstain from any contact to that area until it gets smaller as your at increased risk of splenic rupture. Current COVID social distancing guidelines is to go for 5 days from onset of symptoms and 72 hours without a fever. Prescriptions: No Action albuterol sulfate [ProAir HFA] 90 mcg/actuation HFA aerosol inhaler 2 puff inhalation Q4H PRN (Reason: bronchospasm) Qty: 8.5 3RF (DME) Dexcom G7 Emergency Management Consultant Misc See Rx Instructions .ROUTE .MEDSUPPLY Qty: 1 0RF Rx Instructions: As directed Dupixent Syringe 100 mg/0.67 mL syringe 150 mg subcut Q2W ipratropium-albuterol 0.5 mg-3 mg(2.5 mg base)/3 mL solution for nebulization 3 ml inhalation QID PRN albuterol sulfate 2.5 mg /3 mL (0.083 %) solution for nebulization 2.5 mg inhalation Q4H PRN tadalafil [Cialis] 20 mg tablet 20 mg PO QDAY PRN (Reason: sexual activity) Qty: 30 2RF Rx Instructions: take 1 tablet 30 min to 36 hours prior to intercourse atorvastatin 20 mg tablet 20 mg PO QHS Qty: 90 3RF losartan-hydrochlorothiazide 100-12.5 mg tablet 1 tab PO QDAY Qty: 90 3RF omeprazole 20 mg capsule,delayed release(DR/EC) 20 mg PO DAILY Qty: 90 3RF Ozempic 2 mg/dose (8 mg/3 mL) pen injector 2 mg subcut QWEEK 90 Days Qty: 9.75 1RF Mounjaro 10 mg/0.5 mL pen injector 10 mg subcut QWEEK Qty: 2 3RF (DME) Dexcom G7 Sensor Device See Rx Instructions .ROUTE .MEDSUPPLY Qty: 3 3RF Rx Instructions: As directed Follow Up/Referrals: Konstantin Thomson PA-C [Primary Care Provider] - Stand Alone Forms: [facility] Info Instructions
[2024-05-20 15:35] LABS: Slide Review Reflex No
[2024-05-20 15:38] LABS: Chloride* 108 mmol/L (96-114); Potassium* 3.7 mmol/L (3.6-5.1); Sodium* 138 mmol/L (135-149)
[2024-05-20 15:41] LABS: Anion Gap 14 mEq/L (7-15); Blood Urea Nitrogen* 16 mg/dL (7-30); Calcium* 9.6 mg/dL (8.4-10.6); Carbon Dioxide* 16 mmol/L (20-32); Creatinine* 1.1 mg/dL (0.5-1.5); Est. Creatinine Clearance* 82.95; Estimated Glomerular Filt Rate 82 ml/min; Glucose* 109 mg/dL (60-115); Lipase* 43 U/L (23-300)
[2024-05-20 16:03] LABS: PCR FLU A Negative PCR FLU A (Negative); PCR FLU B Negative PCR FLU B (Negative); PCR RSV Negative PCR RSV (Negative); SARS PCR* POSITIVE SARS-CoV-2 (Negative)
== END 2024-05-20 16:27 | disposition home or self-care (01) ==
PROVIDERS: Emergency Provider Student in an Organized Health Care Education/Training Program; PCP Physician Assistant Medical
DX: U07.1 COVID-19 (principal)
CPT/HCPCS: 36415; 74177; 80048; 82565; 83690; 85025; 87631; 99284; J7120; Q9967

== ENCOUNTER 2024-05-22 12:59 | Emergency (ER) | payer OTHER, SELFPAY ==
--- OUTSIDE RECORDS SUMMARY | 2024-05-22 13:02 | XMS_ITS | Clinical Summary ---
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 Gender Identity Not on file Sexual Orientation Not on file Last Filed Vital Signs Vital Sign Reading Time Taken Comments Blood Pressure 126/88 04/01/2018 1:18 PM DENTISTRY PROFESSOR Pulse 69 04/01/2018 1:18 PM DENTISTRY PROFESSOR Temperature 36.3 C (97.3 F) 04/01/2018 1:18 PM DENTISTRY PROFESSOR Respiratory Rate 22 07/14/2015 12:55 PM CDT Oxygen Saturation 97% 04/01/2018 1:18 PM DENTISTRY PROFESSOR Inhaled Oxygen Concentration - - Weight 105.2 kg (232 lb) 04/01/2018 1:18 PM DENTISTRY PROFESSOR Height 176.5 cm (5' 9.5) 04/01/2018 1:18 PM DENTISTRY PROFESSOR Body Mass Index 33.77 04/01/2018 1:18 PM DENTISTRY PROFESSOR Plan of Treatment Not on file Care Teams Assistant Relationship Specialty Start Date End Date [address] [address] PCP - General 12/13/16
--- OUTSIDE RECORDS SUMMARY | 2024-05-22 13:02 | XMS_ITS | Referral Summary ---
Author Organization [facility] Address [address] [place] [id number] Care Team Providers Care High School Biology Teacher Name Role Phone None, Md Primary Care [...] 12/11/2017 Active Sodium Chloride 0.9 % Nasal [place] SprA Instill 3 puffs into each nostril [...] on file Medical Devices Implanted Type Area Lamp Cleaner Device Identifier Shelf Expiration Date Model / Serial / Lot Implant Sinus Propel Mini - [id number] Implanted:Qty: 4 on 12/11/2017 by Ray [place]ard [place] [facility] N/A: [employer] 03/13/2019 [id number] / / [id number] Implant Sinus Propel - [id number] Implanted:Qty: 2 on 12/11/2017 by Ray Pickard [place] [facility] [place] [place] N/A: [employer] 05/09/2019 [id number] / / [id number] Care Teams High School Biology Teacher Relationship Specialty Start Date End Date Md Stefano PCP - General 12/11/17
--- OUTSIDE RECORDS SUMMARY | 2024-05-22 13:02 | XMS_ITS | Clinical Summary ---
Author Organization [facility] Address [address] [place] [id number] Care Team Providers Care Hearing Stenographer Name Role Phone None, Md Primary Care [...] 12/11/2017 Active Sodium Chloride 0.9 % Nasal [place] SprA Instill 3 puffs into each nostril [...] of 2 - PCV) 1993 COVID-19 Vaccine ( - season) 2023 Yearly Review of HCD 2024 12/05/2017 Zoster Vaccine (1 of 2) 2024 Influenza Vaccine (Season Ended) 2024 Adult Tetanus Booster 12/02/2026 12/02/2016 RSV Vaccines (1 - 1-dose 75+ series) 2049 Medical Devices Implanted Type Area Leader Assembler Device Identifier Shelf Expiration Date Model / Serial / Lot Implant Sinus Propel Mini - [id number] Implanted:Qty: 4 on 12/11/2017 by Ray Pickard MD at [facility] [place] N/A: [employer] 03/13/2019 [id number] / / [id number] Implant Sinus Propel - [id number] Implanted:Qty: 2 on 12/11/2017 by Ray Pickard MD [place] [facility] N/A: [employer] 05/09/2019 [id number] / / [id number] Care Teams Hearing Stenographer Relationship Specialty Start Date End Date Stefano, PCP - General 12/11/17
[2024-05-22 13:16] VITALS: BP 143/109; PULSE 82; RESP 18; TEMP 36.3; O2SAT 97; BMI 33.0
--- NOTE | 2024-05-22 13:21 | ED.NAVMDI ---
HPI - Nausea/Vomiting/Diarrhea General Time Seen by Provider: 13:21 Date Seen: 05/22/24 Chief complaint: Diarrhea Stated complaint: covid/stomach issues Time Seen by Provider: 05/22/24 13:11 Source: patient, RN notes reviewed and old records reviewed Mode of arrival: ambulatory Limitations: no limitations History of Present Illness HPI Narrative: Eddie is a very pleasant 49-year-old male with history of type 2 diabetes mild intermittent asthma, nonsmoker who comes to the emergency room for evaluation for continued diarrhea, nausea, abdominal pain and shortness of breath in the setting of newly diagnosed COVID. Eddie return from [place] approximately 4 days ago on SundayMay 18. He notes that they did eat in a [place] on Sunday[place] 16. No one else has gotten sick. The following morning he developed diarrhea which has continued and seems to be a little bit worse now. On SundayMay 18 today he flew back he began to develop some respiratory symptoms and congestion. He tested positive for COVID on SundayMay 19. He is still experiencing cough and states he is now even occasionally short of breath. He notes that his abdominal pain seems to be mostly upper abdomen - he points to the epigastrium. No vomiting in blood or stool. Denies any chest pain. Denies calf tenderness although does report charley horses last night. Has not had a history of a DVT. Denies calf swelling. Associated nausea: Yes Related Data Home Medications ?Medication ?Instructions ?Recorded ?Confirmed albuterol sulfate 2.5 mg/3 mL 2.5 mg inhalation Q4H PRN 10/10/21 05/26/24 (0.083 %) solution for nebulization dupilumab 100 mg/0.67 mL 150 mg subcut Q2W 10/10/21 05/26/24 subcutaneous syringe (PopcutsixKaazing) ipratropium 0.5 mg-albuterol 3 mg 3 ml inhalation QID PRN 10/10/21 05/26/24 (2.5 mg base)/3 mL nebulization soln Previous Rx's ?Medication ?Instructions ?Recorded albuterol sulfate 90 mcg/actuation 2 puff inhalation Q4H PRN 05/04/22 aerosol inhaler (ProAir HFA) bronchospasm #8.5 grams blood-glucose,neon light installer,cont #1 ea 10/09/22 (Dexcom G7 Print Production Manager) tadalafil 20 mg tablet (Cialis) 20 mg PO QDAY PRN sexual activity 06/06/23 #30 tabs atorvastatin 20 mg tablet 20 mg PO QHS #90 tabs 09/26/23 losartan 100 1 tab PO QDAY #90 tabs 09/26/23 mg-hydrochlorothiazide 12.5 mg tablet omeprazole 20 mg capsule,delayed 20 mg PO DAILY #90 caps 09/26/23 release blood-glucose sensor (Dexcom G7 #3 ea 05/13/24 Sensor device) ondansetron 4 mg disintegrating 4 mg PO Q8H #14 tabs 05/22/24 tablet metformin 500 mg tablet,extended 2,000 mg (4 x 500 mg) PO QDAY 90 05/27/24 release 24 hr days #360 tabs Allergies Allergy/AdvReac Type Severity Reaction Status Date / Time penicillin V Allergy Severe Hives Verified 05/26/24 09:43 HAYFEVER Allergy Unknown Unknown Uncoded 05/26/24 09:43 Review of Systems Status of ROS: Reports: 10 or more systems reviewed and unremarkable except as noted in History and below Const: Reports: chills and fatigue; Denies: fever Eyes: Denies: change in vision or eye discharge ENMT: Reports: nasal congestion; Denies: throat pain Cardio: Reports: shortness of breath with exertion; Denies: chest pain, palpitations or swelling of feet/ankles Resp: Reports: shortness of breath and cough GI: Reports: abdominal pain, nausea, vomiting and diarrhea; Denies: blood in stool : Reports: decreased urine ouput; Denies: painful urination Musculo: Denies: back pain Endo: Reports: fatigue PFSH PFS Medical History (Updated 05/27/24 @ 09:00 by Konstantin Thomson PA-C) COVID ?U07.1 - COVID-19 (ICD-10) Chest pain ?R07.9 - Chest pain, unspecified (ICD-10) Surgical History History of esophageal stricture ?Z87.19 - Personal history of other diseases of the digestive system (ICD-10) History of medial meniscus repair of left knee ?Z98.890 - Other specified postprocedural states (ICD-10) History of endoscopic sinus surgery ?Z98.890 - Other specified postprocedural states (ICD-10) Family History Maternal Grandmother Diabetes High blood pressure Mother High blood pressure Sister High blood pressure Social History Narrative: Non smoker Does not use illicit drugs does not drink alcohol Smoking Status: Never smoker How often do you have a drink containing alcohol: monthly or less How often do you have six or more drinks on one occasion: Never AUDIT-C Alcohol total score: 1 Non-prescribed substance use: denies use Exam Narrative: Exam Narrative: Alert and oriented. His fatigued but nontoxic in appearance. Eyes are clear. Face symmetrical. Neck is supple without lymphadenopathy. Heart with a regular rate and rhythm and lungs are with decreased breath sounds in the bases bilaterally. Abdomen is soft. Mild tenderness noted in the epigastrium. Bowel sounds are present. Lower extremities with out any edema. No calf tenderness with palpation and negative Homans Sign Const: Vital Signs, click to edit/add: Vital Signs - 24 hr 05/22/24 13:16 05/22/24 13:26 05/22/24 13:30 Temperature 97.3 F L Pulse Rate 86 85 Pulse Rate [Pulse Oximeter] 82 Respiratory Rate 18 Blood Pressure [Ri ght Upper Arm] 143/109 H Pulse Oximetry 97 94 97 Oxygen Delivery Me thod Room Air 05/22/24 13:53 Temperature Pulse Rate 88 Pulse Rate [Pulse Oximeter] Respiratory Rate Blood Pressure [Ri ght Upper Arm] Pulse Oximetry 97 Oxygen Delivery Me thod Documenting provider has reviewed patient's vital signs: yes Course Course ED Course: differential diagnosis includes but is not limited to food-borne illness, COVID symptoms, pneumonia, dehydration. Will place IV give 1 L of normal saline as well as Zofran 4 mg IV. CBC, comprehensive panel, CRP, troponin, urinalysis pending. If creatinine is normal will also give a dose of Toradol. Will also obtain stool cultures secondary to recent travel to [place]. Perhaps what he is experiencing the diarrhea is something separate from the COVID. Reevaluation(s) Reevaluation #1: Patient noted to be feeling slight bit improved after the 1 L fluids. A 2 L given. I have held off on the use of Toradol given his elevated creatinine. A 2nd point of care creatinine comes back at 1.6 consistent with the 1st value. Given his elevated white count now, history of splenomegaly, we have ordered a noncontrast CT of the abdomen and pelvis. Reevaluation #2: Troponin negative. Urinalysis without significant ketones but very concentrated urine. Vital Signs Vital signs: Initial Vital Signs Temperature 97.3 F L 05/22/24 13:16 Temperature Source Temporal Artery Scan 05/22/24 13:16 Pulse Rate 82 05/22/24 13:16 Respiratory Rate 18 05/22/24 13:16 Blood Pressure 143/109 H 05/22/24 13:16 Blood Pressure Mean 120 H 05/22/24 13:16 Pulse Oximetry 97 05/22/24 13:16 Oxygen Delivery Method Room Air 05/22/24 13:16 Vital Signs Temperature 97.3 F L 05/22/24 13:16 Pulse Rate 82 05/22/24 13:16 Respiratory Rate 18 05/22/24 13:16 Blood Pressure 143/109 H 05/22/24 13:16 Pulse Oximetry 97 05/22/24 13:16 Oxygen Delivery Method Room Air 05/22/24 13:16 Temperature 97.3 F L 05/22/24 13:16 Pulse Rate 88 05/22/24 13:53 Respiratory Rate 18 05/22/24 13:16 Blood Pressure 143/109 H 05/22/24 13:16 Pulse Oximetry 97 05/22/24 13:53 Oxygen Delivery Method Room Air 05/22/24 13:16 Medications Administered Medications: Discontinued Medications Generic Name Dose Route Start Last Admin Trade Name Freq PRN Reason Stop Dose Admin Sodium Chloride 1,000 mls @ 1,000 mls/hr 05/22/24 13:33 05/22/24 15:08 0.9 % Sodium Chloride 1000 Ml IV 05/22/24 14:32 Infused .Q1H FATIMAH Infusion Sodium Chloride 1,000 mls @ 1,000 mls/hr 05/22/24 15:25 05/22/24 16:05 0.9 % Sodium Chloride 1000 Ml IV 05/22/24 16:24 Infused .Q1H FATIMAH Infusion Ondansetron HCl 4 mg 05/22/24 13:32 05/22/24 14:09 Ondansetron 2 Mg/Ml Inj IVP 05/22/24 13:33 4 mg ONCE ONE Administration MDM - Nausea/Vomiting/Diarrhea MDM Narrative Medical decision making narrative: 1. COVID-no evidence of pneumonia, hypoxia at this time. 2. Acute kidney injury-creatinine elevated at 1.6 from a normal of 1.1 3 days ago. 2 L of fluids have been given at this time. Will need to have this recheck in the next few days. 3. Diarrhea-no diarrhea while here in the emergency room. Here going to give patient some food as there has been no vomiting either. 4. History of splenomegaly-noted on initial CT. White count now elevated at greater than 17,000 with persistent abdominal pain. Will repeat abdominal CT but without contrast at this time secondary to elevated creatinine. 5. Disposition- signed out to my partner Dr. Johnson for review of the CT and disposition. Medical Records Attestation: I reviewed the patient's medical records. Lab Data Attestation: I reviewed the patient's lab results. Labs: Lab Results 05/22/24 05/22/24 05/22/24 Range/Units 13:32 14:05 15:15 WBC 17.59 H (4.50-11.00) K/uL RBC 6.52 H (4.30-5.90) m/uL Hgb 18.8 H (13.5-17.5) gm/dL Hct 52.9 (37.0-53.0) % MCV 81 (80-100) fL MCH 29 (26-34) pg MCHC 36 (32-36) gm/dL RDW Coeff of Darlyn 13.1 (11.5-15.5) % Plt Count 372 (140-440) K/uL Neut % (Auto) 72.0 (42.0-72.0) % Lymph % (Auto) 14.7 L (20-44) % Waller % (Auto) 7.9 (0.0-11.0) % Eos % (Auto) 3.0 (0.0-7.0) % Baso % (Auto) 0.2 (0.0-3.0) % Neut # (Auto) 12.70 H (1.7-7.0) K/uL Lymph # (Auto) 2.60 (0.90-2.90) K/uL Waller # (Auto) 1.40 H (0.00-0.90) K/UL Eos # (Auto) 0.50 (0.00-0.50) K/uL Baso # (Auto) 0.00 (0.00-0.30) K/uL Abs Immat Gran (auto) 0.40 H (0.00-0.30) K/uL Imm/Tot Granulo (auto) 2.2 % Sodium 133 L (135-149) mmol/L Potassium 3.5 L (3.6-5.1) mmol/L Chloride 100 (96-114) mmol/L Carbon Dioxide 16 L (20-32) mmol/L Anion Gap 17 H (7-15) mEq/L BUN 29 (7-30) mg/dL Creatinine 1.6 H (0.5-1.5) mg/dL Estimated Creat Clear 57.03 Estimated GFR 52 ml/min Glucose 99 (60-115) mg/dL Calcium 9.9 (8.4-10.6) mg/dL Total Bilirubin 1.3 (0.1-1.5) mg/dL AST 36 H (12-35) U/L ALT 47 (4-50) U/L Alkaline Phosphatase 94 (40-150) U/L C-Reactive Protein 0.6 (0.5-1.0) mg/dL Total Protein 8.7 H (6.0-8.3) g/dL Albumin 5.4 H (3.3-5.0) g/dL Urine Color [place] A (Yellow) Urine Appearance Cloudy A (Clear) Urine pH 6.0 (5.0-8.5) Ur Specific [place] >= 1.030 (1.000-1.030) Urine Protein 2+ A (Negative) Urine Glucose (UA) Negative (Negative) Urine Ketones Negative (Negative) Urine Blood Negative (Negative) Urine Nitrite Negative (Negative) Urine Bilirubin 1+ A (Negative) Urine Urobilinogen 0.2 (0.2-1.0) Ur Leukocyte Esterase Negative (Negative) Urine RBC 0-2 (0-2) Urine WBC 0-2 (0-5) Ur Squamous Epith Cells None (None-Few) Urine Bacteria Few A (None) POC Creatinine (0.6-1.3) mg/dl POC Troponin I 0.00 L (0.01-0.04) ng/ml 05/22/24 Range/Units 15:44 WBC (4.50-11.00) K/uL RBC (4.30-5.90) m/uL Hgb (13.5-17.5) gm/dL Hct (37.0-53.0) % MCV (80-100) fL MCH (26-34) pg MCHC (32-36) gm/dL RDW Coeff of Darlyn (11.5-15.5) % Plt Count (140-440) K/uL Neut % (Auto) (42.0-72.0) % Lymph % (Auto) (20-44) % Waller % (Auto) (0.0-11.0) % Eos % (Auto) (0.0-7.0) % Baso % (Auto) (0.0-3.0) % Neut # (Auto) (1.7-7.0) K/uL Lymph # (Auto) (0.90-2.90) K/uL Wall[place] # (Auto) (0.00-0.90) K/UL Eos # (Auto) (0.00-0.50) K/uL Baso # (Auto) (0.00-0.30) K/uL Abs Immat Gran (auto) (0.00-0.30) K/uL Imm/Tot Granulo (auto) % Sodium (135-149) mmol/L Potassium (3.6-5.1) mmol/L Chloride (96-114) mmol/L Carbon Dioxide (20-32) mmol/L Anion Gap (7-15) mEq/L BUN (7-30) mg/dL Creatinine (0.5-1.5) mg/dL Estimated Creat Clear Estimated GFR ml/min Glucose (60-115) mg/dL Calcium (8.4-10.6) mg/dL Total Bilirubin (0.1-1.5) mg/dL AST (12-35) U/L ALT (4-50) U/L Alkaline Phosphatase (40-150) U/L C-Reactive Protein (0.5-1.0) mg/dL Total Protein (6.0-8.3) g/dL Albumin (3.3-5.0) g/dL Urine Color (Yellow) Urine Appearance (Clear) Urine pH (5.0-8.5) Ur Specific [place] (1.000-1.030) Urine Protein (Negative) Urine Glucose (UA) (Negative) Urine Ketones (Negative) Urine Blood (Negative) Urine Nitrite (Negative) Urine Bilirubin (Negative) Urine Urobilinogen (0.2-1.0) Ur Leukocyte Esterase (Negative) Urine RBC (0-2) Urine WBC (0-5) Ur Squamous Epith Cells (None-Few) Urine Bacteria (None) POC Creatinine 1.6 H (0.6-1.3) mg/dl POC Troponin I (0.01-0.04) ng/ml Imaging Data Chest x-ray: Attestation: I have reviewed the pertinent imaging results. My impression: I do not note any abnormalities Radiologist's impression: The cardiomediastinal silhouette is enlarged, accentuated by portable technique and low lung volumes. No focal airspace consolidation, pleural effusion, or pneumothorax. No displaced fractures. IMPRESSION: No acute cardiopulmonary process. ECG Data Attestation: I personally reviewed and interpreted this ECG as follows: ECG interpretation date: 05/22/24 Discharge Plan Discharge Clinical Impression: Diarrhea, COVID, Creatinine elevation Patient Disposition: Home, Self-Care Condition: Improved Additional Instructions: Your kidney function has worsened somewhat since your previous visit. Creatinine today is 1.6 and is likely a reflection of dehydration from the diarrhea. Maintain good hydration with a mixture of Gatorade Powerade, water and juices. Recommend recheck of this value at the clinic to ensure return to normal. You can drop off your stool sample to the ER front desk receptionist desk at your convienence. COVID-your oxygen levels were good today and chest x-ray was without any evidence of pneumonia. Recommend sleeping on your side or on your abdomen. Avoid sleeping or resting flat on your back. Return for difficulty breathing, worsening symptoms and as needed Your CT showed: Stable splenomegaly, no acute findings. [facility] Thomson on SundayMay 26 at 9:30am, please check in at 9:15. Prescriptions: New ondansetron 4 mg tablet,disintegrating 4 mg PO Q8H Qty: 14 0RF No Action albuterol sulfate [ProAir HFA] 90 mcg/actuation HFA aerosol inhaler 2 puff inhalation Q4H PRN (Reason: bronchospasm) Qty: 8.5 3RF (DME) Dexcom G7 Print Production Manager Misc See Rx Instructions .ROUTE .MEDSUPPLY Qty: 1 0RF Rx Instructions: As directed Dupixent Syringe 100 mg/0.67 mL syringe 150 mg subcut Q2W ipratropium-albuterol 0.5 mg-3 mg(2.5 mg base)/3 mL solution for nebulization 3 ml inhalation QID PRN albuterol sulfate 2.5 mg /3 mL (0.083 %) solution for nebulization 2.5 mg inhalation Q4H PRN tadalafil [Cialis] 20 mg tablet 20 mg PO QDAY PRN (Reason: sexual activity) Qty: 30 2RF Rx Instructions: take 1 tablet 30 min to 36 hours prior to intercourse atorvastatin 20 mg tablet 20 mg PO QHS Qty: 90 3RF losartan-hydrochlorothiazide 100-12.5 mg tablet 1 tab PO QDAY Qty: 90 3RF omeprazole 20 mg capsule,delayed release(DR/EC) 20 mg PO DAILY Qty: 90 3RF (DME) Dexcom G7 Sensor Device See Rx Instructions .ROUTE .MEDSUPPLY Qty: 3 3RF Rx Instructions: As directed metformin 500 mg tablet extended release 24 hr 2,000 mg PO QDAY 90 Days Qty: 360 1RF Follow Up/Referrals: Konstantin Thomson PA-C [Primary Care Provider] - Stand Alone Forms: [facility] Info Instructions
[2024-05-22 13:26] VITALS: PULSE 86; O2SAT 94
[2024-05-22 13:30] VITALS: PULSE 85; O2SAT 97
--- NOTE | 2024-05-22 13:34 | CRLHL7_ITS ---
For Patients: As a result of the Cures Act, medical imaging exams and procedure reports are released immediately into your electronic medical record. You may view this report before your referring provider. If you have questions, please contact your health care provider. INDICATION: : COVID COMPARISON: Chest radiograph on September 29, 2020 and October 28, 2019 TECHNIQUE: One view(s) of the chest FINDINGS: The cardiomediastinal silhouette is enlarged, accentuated by portable technique and low lung volumes. No focal airspace consolidation, pleural effusion, or pneumothorax. No displaced fractures. IMPRESSION: No acute cardiopulmonary process. Dictated by Mikie Grajeda MD @ 05/22/2024 2:03:41 PM (Electronically Signed)
[2024-05-22 13:53] VITALS: PULSE 88; O2SAT 97
[2024-05-22] MEDS: ONDANSETRON 2 MG/ML inj 4 MG IVP (14:09)
[2024-05-22] MEDS: 0.9 % SODIUM CHLORIDE 1000 ml 1,000 ML IV ×2 (14:10→15:37)
[2024-05-22 14:14] LABS: Basophils Percent Auto 0.2 % (0.0-3.0); Hematocrit 52.9 % (37.0-53.0); Hemoglobin* 18.8 gm/dL (13.5-17.5); Immature Granulocytes Pct Auto 2.2 %; Lymphocytes Percent Auto 14.7 % (20-44); Mean Corpuscular HGB Conc 36 gm/dL (32-36); Mean Corpuscular Hemoglobin 29 pg (26-34); Mean Corpuscular Volume 81 fL (80-100); Monocytes Percent Auto 7.9 % (0.0-11.0); Platelet Count* 372 K/uL (140-440); RDW Coefficient of Variation % 13.1 % (11.5-15.5); Red Blood Count 6.52 m/uL (4.30-5.90); White Blood Count* 17.59 K/uL (4.50-11.00)
[2024-05-22 14:15] LABS: Slide Review Reflex No
[2024-05-22 14:26] LABS: Albumin* 5.4 g/dL (3.3-5.0); Chloride* 100 mmol/L (96-114); Sodium* 133 mmol/L (135-149)
[2024-05-22 14:27] LABS: Potassium* 3.5 mmol/L (3.6-5.1)
[2024-05-22 14:29] LABS: Alanine Aminotransferase* 47 U/L (4-50); Alkaline Phosphatase* 94 U/L (40-150); Anion Gap 17 mEq/L (7-15); Aspartate Amino Transferase* 36 U/L (12-35); Bilirubin Total* 1.3 mg/dL (0.1-1.5); Blood Urea Nitrogen* 29 mg/dL (7-30); Carbon Dioxide* 16 mmol/L (20-32); Creatinine* 1.6 mg/dL (0.5-1.5); Est. Creatinine Clearance* 57.03; Estimated Glomerular Filt Rate 52 ml/min; Total Protein* 8.7 g/dL (6.0-8.3)
[2024-05-22 14:30] LABS: Calcium* 9.9 mg/dL (8.4-10.6); Glucose* 99 mg/dL (60-115)
[2024-05-22 14:32] LABS: C Reactive Protein* 0.6 mg/dL (0.5-1.0)
[2024-05-22 15:20] LABS: Appearance Urine Cloudy (Clear); Bilirubin Urine 1+ (Negative); Blood Urine Negative (Negative); Color Urine Orange (Yellow); Glucose Urine Negative (Negative); Ketones Urine Negative (Negative); Leukocyte Esterase Urine Negative (Negative); Nitrite Urine Negative (Negative); Protein Urine 2+ (Negative); Specific Gravity Urine >= 1.030 (1.000-1.030); Urobilinogen Urine 0.2 (0.2-1.0)
[2024-05-22 15:27] LABS: Bacteria Urine Few; RBC Urine 0-2 (0-2); WBC Urine 0-2 (0-5)
[2024-05-22 16:18] LABS: Creatinine, Point-of-Care* 1.6 mg/dl (0.6-1.3)
--- NOTE | 2024-05-22 16:23 | CRLHL7_ITS ---
For Patients: As a result of the Century Cures Act, medical imaging exams and procedure reports are released immediately into your electronic medical record. You may view this report before your referring provider. If you have questions, please contact your health care provider. INDICATION: Diarrhea. Leukocytosis. TECHNIQUE: Multiplanar CT examination of the abdomen and pelvis was performed without the use of intravenous contrast. COMPARISON: CT abdomen pelvis 05/20/2024. FINDINGS: Lower chest: No focal consolidation. Normal heart size. No pleural effusions or pneumothorax. Subsegmental atelectasis. Liver: Unremarkable. Gallbladder: Unremarkable. Biliary: Unremarkable. Pancreas: Within normal limits. Spleen: Mild splenomegaly. Adrenal glands: Unremarkable. Renal/ureters/bladder: Normal in size. No obstructive uropathy. No hydronephrosis or obstructive urinary calculi. The ureters appear unremarkable. The bladder is within normal limits. Limited evaluation for renal masses without the use of intravenous contrast. Pelvis: Unremarkable prostate. Gastrointestinal: No bowel wall thickening or bowel obstruction. Nonvisualized appendix. No significant colonic diverticulosis. Mild colonic stool burden. Vasculature: No aortic aneurysm. Mild atherosclerotic calcifications. Lymph nodes: No pathologic lymphadenopathy by size criteria. Peritoneum: No free fluid or pneumoperitoneum. No drainable fluid collections. Abdominal wall/soft tissues: Unremarkable. Bones: No acute osseous abnormalities. Mild degenerative changes of the visualized thoracolumbar spine. IMPRESSION: 1. Stable mild splenomegaly. 2. Otherwise, no acute abdominopelvic findings. Please note that all CT scans at this facility use dose modulation, iterative reconstruction, and/or weight-based dosing when appropriate to reduce radiation dose to as low as reasonably achievable. Dictated by Minh Lackey MD @ 05/22/2024 4:54:27 PM (Electronically Signed)
--- OUTSIDE RECORDS SUMMARY | 2024-05-22 17:43 | XMS_ITS | Clinical Summary ---
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 Gender Identity Not on file Sexual Orientation Not on file Last Filed Vital Signs Vital Sign Reading Time Taken Comments Blood Pressure 126/88 04/01/2018 1:18 PM HUNTING SALES ASSOCIATE Pulse 69 04/01/2018 1:18 PM HUNTING SALES ASSOCIATE Temperature 36.3 C (97.3 F) 04/01/2018 1:18 PM HUNTING SALES ASSOCIATE Respiratory Rate 22 07/14/2015 12:55 PM CDT Oxygen Saturation 97% 04/01/2018 1:18 PM HUNTING SALES ASSOCIATE Inhaled Oxygen Concentration - - Weight 105.2 kg (232 lb) 04/01/2018 1:18 PM HUNTING SALES ASSOCIATE Height 176.5 cm (5' 9.5) 04/01/2018 1:18 PM HUNTING SALES ASSOCIATE Body Mass Index 33.77 04/01/2018 1:18 PM HUNTING SALES ASSOCIATE Plan of Treatment Not on file Care Teams Emergency Preparedness Manager Relationship Specialty Start Date End Date [address] [address] PCP - General 12/13/16
--- OUTSIDE RECORDS SUMMARY | 2024-05-22 17:43 | XMS_ITS | Clinical Summary ---
Author Organization [facility] Address [address] [place] [address] Care Team Providers Care Salesforce Administrator Name Role Phone None, Md Primary Care [...] 12/11/2017 Active Sodium Chloride 0.9 % Nasal Frost SprA Instill 3 puffs into each nostril [...] series) 2049 Medical Devices Implanted Type Area Contact Lens Fitter Device Identifier Shelf Expiration Date Model / Serial / Lot Implant Sinus Propel Mini - [id number] Implanted:Qty: 4 on 12/11/2017 by Ray Pickard MD at [facility] Supply N/A: [employer] 03/13/2019 [id number] / / [id number] Implant Sinus Propel - [id number] Implanted:Qty: 2 on 12/11/2017 by Ray Pickard MD at [facility] Supply N/A: [employer] 05/09/2019 [id number] / / [id number] Care Teams Salesforce Administrator Relationship Specialty Start Date End Date Stefano, PCP - General 12/11/17
--- OUTSIDE RECORDS SUMMARY | 2024-05-22 17:43 | XMS_ITS | Referral Summary ---
Author Organization [facility] Address [address] [place] [address] Care Team Providers Care Wood Polisher Name Role Phone None, Md Primary Care [...] 12/11/2017 Active Sodium Chloride 0.9 % Nasal [place] SprA Instill 3 puffs into each nostril [...] on file Medical Devices Implanted Type Area Tile Mechanic Device Identifier Shelf Expiration Date Model / Serial / Lot Implant Sinus Propel Mini - [id number] Implanted:Qty: 4 on 12/11/2017 by Ray Pickard MD at [facility] Supply N/A: [employer] 03/13/2019 [id number] / / [id number] Implant Sinus Propel - [id number] Implanted:Qty: 2 on 12/11/2017 by Ray Pickard MD at [facility] Supply N/A: [employer] 05/09/2019 [id number] / / [id number] Care Teams Wood Polisher Relationship Specialty Start Date End Date Md Stefano PCP - General 12/11/17
== END 2024-05-22 17:45 | disposition home or self-care (01) ==
LOC: ED 17:41
PROVIDERS: Family Medicine; Emergency Provider Student in an Organized Health Care Education/Training Program; PCP Physician Assistant Medical
DX: U07.1 COVID-19 (principal)
CPT/HCPCS: 36415; 71045; 74176; 80053; 81001; 82565; 84484; 85025; 86140; 87045; 87046; 87086; 87427; 96374; 99284; J2405; J7030

== ENCOUNTER 2024-05-26 10:02 | Outpatient (CLI) | payer OTHER, SELFPAY | END 2024-05-26 10:03 | disposition home or self-care (01) | LOC: FRMREF 10:02 | PROVIDERS: PCP Physician Assistant Medical; Visit Provider Physician Assistant Medical | DX: R63.5 Abnormal weight gain (principal) | CPT/HCPCS: 84443 ==

== ENCOUNTER 2024-11-04 08:23 | Outpatient (CLI) | payer OTHER, SELFPAY ==
--- NOTE | 2024-11-04 08:45 | CRLHL7_ITS ---
For Patients: As a result of the Century Cures Act, medical imaging exams and procedure reports are released immediately into your electronic medical record. You may view this report before your referring provider. If you have questions, please contact your health care provider. DIGITAL DIAGNOSTIC BILATERAL MAMMOGRAM USING TOMOSYNTHESIS AND COMPUTER-AIDED DETECTION CLINICAL HISTORY: LEFT breast lump. COMPARISON: None. TECHNIQUE: Digital BILATERAL mammogram in four projections with computer-aided detection. Tomosynthesis was used in this interpretation. BREAST COMPOSITION: There are scattered areas of fibroglandular density. FINDINGS: 3D CC/MLO BILATERAL mammogram images submitted. Mild fibroglandular densities are present within the LEFT subareolar region. No suspicious mass or architectural distortion. No adenopathy or suspicious calcifications. IMPRESSION: Mild LEFT subareolar gynecomastia. No evidence of malignancy. RECOMMENDATIONS: Clinical follow-up. A lay language report of this examination will be provided to the patient. BI-RADS Category 2: Benign Dictated by Adrien Naik MD @ 11/04/2024 10:59:11 AM jj/Dictated by: Adrien Naik MD @ 11/04/2024 10:59:00 AM (Electronically Signed)
== END 2024-11-04 08:24 | disposition home or self-care (01) ==
LOC: MAMMO 08:24
PROVIDERS: PCP Physician Assistant Medical; Visit Provider Physician Assistant Medical
DX: N63.20 Unspecified lump in the left breast, unspecified quadrant (principal); N62 Hypertrophy of breast
CPT/HCPCS: 77066; G0279

== ENCOUNTER 2025-02-06 08:23 | Outpatient (CLI) | payer OTHER, SELFPAY | END 2025-02-06 08:24 | disposition home or self-care (01) | LOC: NFLDREF 02-13 06:21 | PROVIDERS: PCP Physician Assistant Medical; Referring Provider Physician Assistant Medical; Visit Provider Physician Assistant Medical | DX: E11.9 Type 2 diabetes mellitus without complications (principal); I10 Essential (primary) hypertension; E78.2 Mixed hyperlipidemia | CPT/HCPCS: 80053; 80061; 82043; 82570; 84443; G0103 ==